=== PATIENT | female | born 1945 | race Caucasian/White ===

== ENCOUNTER 2023-02-01 11:39 | Emergency (ER) | payer MEDICARE ==
[~2023-02-01] VITALS: Ht 160 cm; Wt 55.5 kg
[2023-02-01 12:00] VITALS: TEMP 98.2
[2023-02-01] MEDS ORDERED: BENZ-38 PO (16:57)
[2023-02-01 17:05] VITALS: BP 128/83; PULSE 84; RESP 18; O2SAT 93
--- NOTE | 2023-02-01 17:13 | NUR ---
WALL[employer]ER'S GEN ASSESSMENT REVIEWED BY CORRIE, RNC CS; APPROVED
== END 2023-02-01 17:02 | disposition home or self-care (01) ==
LOC: ER 11:39
DX: J06.9 Acute upper respiratory infection, unspecified (principal); Z20.822 Contact with and (suspected) exposure to COVID-19
CPT/HCPCS: 36415; 71045; 87502; 87503; 87811; 99284

== ENCOUNTER 2023-02-28 08:14 | Emergency (ER) | payer MEDICARE ==
[~2023-02-28] VITALS: Ht 160 cm; Wt 55.8 kg
[~2023-02-28 08:14] MED LIST: BENZ-38 PO
[2023-02-28 10:11] LABS: BASOPHILS % (AUTO) 0.1 % (0-1); EOSINOPHILS # (AUTO) 0.1 X10'3 (0-0.9); EOSINOPHILS % (AUTO) 1.4 % (0-6); HEMATOCRIT 42.6 % (35.0-45.0); HEMOGLOBIN 14.5 g/dl (12.0-16.0); LYMPHOCYTES % (AUTO) 12.5 % (21-51); MEAN CORPUSCULAR HEMOGLOBIN 31.5 PG (27.0-31.0); MEAN CORPUSCULAR HGB CONC 34.1 g/dL (33.0-36.5); MEAN CORPUSCULAR VOLUME 92.6 FL (78-98); MEAN PLATELET VOLUME 7.7 FL (7.4-10.4); MONOCYTES # (AUTO) 0.7 X10'3 (0-0.9); MONOCYTES % (AUTO) 9.5 % (2-12); NEUTROPHILS % (AUTO) 76.5 % (42-75); PLATELET COUNT 286 X10'3 (140-440); RED BLOOD COUNT 4.61 X10'6 (4.20-5.60); RED CELL DISTRIBUTION WIDTH 13.5 % (11.5-14.5); WHITE BLOOD COUNT 7.9 X10'3 (4.5-11.0)
[2023-02-28 10:18] VITALS: BP 117/75; PULSE 90; RESP 16; TEMP 98.1; O2SAT 97
[2023-02-28 10:25] LABS: ALANINE AMINOTRANSFERASE 18 U/L (12-78); ALBUMIN 3.4 G/DL (3.4-5.0); ALBUMIN/GLOBULIN RATIO 0.9 (1.1-1.5); ALKALINE PHOSPHATASE 90 IU/L (46-116); ANION GAP 8 (8-16); ASPARTATE AMINO TRANSFERASE 33 U/L (10-37); BILIRUBIN,TOTAL 0.3 MG/DL (0.1-1.0); BLOOD UREA NITROGEN 24 MG/DL (7-18); BUN/CREATININE RATIO 28.2 (10.0-20.0); CALCIUM 9.3 MG/DL (8.5-10.1); CHLORIDE 104 MMOL/L (99-107); CREATININE 0.85 MG/DL (0.40-0.90); GLUCOSE 90 MG/DL (70-104); POTASSIUM 3.5 MMOL/L (3.5-5.1); SODIUM 138 MMOL/L (135-145); TOTAL CARBON DIOXIDE 26.3 MMOL/L (24-32); TOTAL PROTEIN 7.2 G/DL (6.4-8.2); eCRCL 45 ML/MIN; eGFR 65 ML/MIN
[2023-02-28] MEDS ORDERED: APIX5TAB5 PO (10:48)
[2023-02-28] MEDS ORDERED: APIX5TAB3 PO (10:48)
[2023-02-28] MEDS ORDERED: CLIN300C3 PO (10:48)
== END 2023-02-28 11:11 | disposition home or self-care (01) ==
LOC: ER 08:15
DX: I82.401 Acute embolism and thrombosis of unspecified deep veins of right lower extremity (principal); K05.10 Chronic gingivitis, plaque induced; Z79.01 Long term (current) use of anticoagulants; Z79.899 Other long term (current) drug therapy
CPT/HCPCS: 36415; 80053; 85025; 93971; 99284

== ENCOUNTER 2024-06-20 09:13 | Outpatient (CLI) | payer MEDICARE ==
[~2024-06-20 09:13] MED LIST changes: +APIX5TAB3 PO; +APIX5TAB5 PO; -BENZ-38 PO
== END 2024-06-20 23:59 | disposition home or self-care (01) ==
LOC: RAD 09:13
PROVIDERS: ATTEND Registered Nurse
DX: M17.12 Unilateral primary osteoarthritis, left knee (principal)
CPT/HCPCS: 73564